=== PATIENT | female | born 1975 | race Caucasian/White ===

== ENCOUNTER 2023-04-07 05:46 | Day surgery (SDC) | payer BC, SELFPAY ==
[2023-04-07] VITALS (15 sets, daily range): BP systolic 119–137; BP diastolic 52–104; PULSE 69–91; RESP 4–25; TEMP 36.3–36.4; O2SAT 93–100
--- NOTE | 2023-04-07 05:55 | PC.NURSE ---
Pt states she has taken sam-seltzer, two tums, and flexeril with no relief.
[2023-04-07] MEDS: NITROGLYCERIN SL 0.4 MG TABLET SUBLINGUAL (06:23)
[2023-04-07] MEDS: GLUCAGON FOR INJ 1 MG VIAL IV PUSH (06:23)
--- NOTE | 2023-04-07 07:32 | ED.GENADULT ---
HPI - General Adult General Chief complaint: Unspecified Stated complaint: food stuck in chest Time Seen by Provider: 04/07/23 07:14 History of Present Illness HPI narrative: Pt ate a piece of steak last night and it got stuck in her chest. Pt asy she has not been able to swallow fluids or her own saliva since and has been up all night vomiting. Pt says this happened one other time but she was eventually able to vomit it up. Pt thomas snever been scoped. Related Data Allergies Allergy/AdvReac Type Severity Reaction Status Date / Time aspirin Allergy Vomiting Verified 04/07/23 09:04 Review of Systems Review of Systems: All systems reviewed & are unremarkable except as noted in HPI and below PMFSH Past Medical History Medical History (Updated 04/07/23 @ 18:57 by Jaspal Johnson III, DO) Food impaction of esophagus Exam Const: General: no acute distress Nutritional Appearance: average body habitus Orientation/consciousness: patient oriented x3 Limitations: no limitations HENMT: Mouth: Yes Normal oral and palatal mucosa present Chest: Chest palpation & inspection: normal inspection of the chest Breast/axilla inspection: normal inspection of the breasts Resp: Effort & Inspection: normal respiratory effort Auscultation: clear to auscultation bilaterally Cardio: Rate: regular rate Rhythm: regular rhythm GI: GI Palp: No abdominal tenderness Percussion: Yes normal to percussion Auscultation: normal bowel sounds Skin: General skin exam: normal color Course Vital Signs Vital signs: Vital Signs Temperature 97.5 F L 04/07/23 05:48 Pulse Rate 90 04/07/23 05:48 Respiratory Rate 16 04/07/23 05:48 Blood Pressure 137/96 H 04/07/23 05:48 Pulse Oximetry 100 04/07/23 05:48 Oxygen Delivery Room Air 04/07/23 05:48 Temperature 97.4 F L 04/07/23 08:55 Pulse Rate 71 04/07/23 10:00 Respiratory Rate 16 04/07/23 10:00 Blood Pressure 129/75 04/07/23 10:00 Pulse Oximetry 100 04/07/23 10:00 Oxygen Delivery Room Air 04/07/23 10:00 Medical Decision Making [facility] Narrative Medical decision making narrative: pt has food bolus stuck in esophagus, will check routine labs and try to reach GI for endoscopy. No GI traffic controller cable today. Dr Reyes contacted at [phone] and will take patient to GI lab for endoscopy. Pt informed. Vital Signs Vital Signs: Vital Signs Temperature 97.5 F L 04/07/23 05:48 Pulse Rate 90 04/07/23 05:48 Respiratory Rate 16 04/07/23 05:48 Blood Pressure 137/96 H 04/07/23 05:48 Pulse Oximetry 100 04/07/23 05:48 Oxygen Delivery Room Air 04/07/23 05:48 Temperature 97.4 F L 04/07/23 08:55 Pulse Rate 71 04/07/23 10:00 Respiratory Rate 16 04/07/23 10:00 Blood Pressure 129/75 04/07/23 10:00 Pulse Oximetry 100 04/07/23 10:00 Oxygen Delivery Room Air 04/07/23 10:00 Lab Data 04/07/23 08:06 04/07/23 08:06 Labs: Lab Results 04/07/23 Range/Units 08:06 WBC 19.7 H (4.5-10.0) K/mm3 RBC 4.09 L (4.2-5.4) M/mm3 Hgb 11.6 L (12.0-15.0) g/dL Hct 35.6 L (37.0-47.0) % MCV 87.0 (80-100) fl MCH 28.4 (26-34) pg MCHC 32.6 (32-36) g/dl RDW 13.7 (11.5-14.5) % Plt Count 264 (150-375) k/mm3 MPV 9.2 (7.4-10.4) fl Immature Gran % (Auto) 0.6 H (0-0.5) % Neut % (Auto) 82.0 H (45.5-73.1) % Lymph % (Auto) 9.0 L (18.3-44.2) % [place] % (Auto) 6.9 (2.6-8.5) % Eos % (Auto) 1.2 (0-4.4) % Baso % (Auto) 0.3 (0.2-1.2) % Lymph # (Auto) 1.77 (0.9-3.2) K/mm3 [place] # (Auto) 1.4 H (0.1-0.6) K/mm3 Eos # (Auto) 0.2 (0-0.3) K/mm3 Baso # (Auto) 0.1 (0.0-0.1) K/mm3 Abs Immat Gran (auto) 0.11 H (0.00-0.031) K/mm3 Absolute Neuts (auto) 16.1 H (1.3-6.7) K/mm3 Absolute Nucleated RBC 0.0 (0.0-0.012) K/mm3 Nucleated RBC % 0.0 (0.0-0.2) % Sodium 134 L (137-145) mmol/L Potassium 3.9 (3.4-5.0) mmol/L Chloride 104 (98-107) mmol/L Carbon Dioxide 25 (22-30)
[2023-04-07] MEDS: SODIUM CHLORIDE 0.9% IV 1,000 ML 999 ML IV CONT (08:00)
[2023-04-07] MEDS: ONDANSETRON INJ 4 MG/2 ML VIAL IV PUSH (08:01)
[2023-04-07 08:12] LABS: Basophils Absolute Auto 0.1 K/mm3 (0.0-0.1); Basophils Percent Auto 0.3 % (0.2-1.2); Eosinophils Absolute Auto 0.2 K/mm3 (0-0.3); Eosinophils Percent Auto 1.2 % (0-4.4); Hematocrit 35.6 % (37.0-47.0); Hemoglobin 11.6 g/dL (12.0-15.0); Immature Granulocyte Absolute 0.11 K/mm3 (0.00-0.031); Immature Granulocyte Percent A 0.6 % (0-0.5); Lymphocytes Absolute Auto 1.77 K/mm3 (0.9-3.2); Mean Corpuscular HGB Conc 32.6 g/dl (32-36); Mean Corpuscular Hemoglobin 28.4 pg (26-34); Mean Platelet Volume 9.2 fl (7.4-10.4); Monocytes Absolute Auto 1.4 K/mm3 (0.1-0.6); Monocytes Percent Auto 6.9 % (2.6-8.5); Neutrophils Absolute Auto 16.1 K/mm3 (1.3-6.7); Platelet Count Result 264 k/mm3 (150-375); Red Blood Count 4.09 M/mm3 (4.2-5.4); Red Cell Distribution Width 13.7 % (11.5-14.5); White Blood Count 19.7 K/mm3 (4.5-10.0)
[2023-04-07 08:21] LABS: Alanine Aminotransferase 18 U/L (6-35); Albumin Level 4.5 g/dL (3.5-5.1); Alkaline Phosphatase 62 U/L (38-126); Anion Gap 5 mmol/L (8-16); Aspartate Amino Transferase 27 U/L (14-36); Bilirubin,Total 0.4 mg/dL (0.2-1.3); Blood Urea Nitrogen 10 mg/dL (7-17); Calcium 9.1 mg/dL (8.4-10.2); Carbon Dioxide 25 mmol/L (22-30); Chloride 104 mmol/L (98-107); Estimated CRCL calculation 105 ml/min; Estimated Glomerular Filt Rate > 60; Glucose 106 mg/dL (65-110); Potassium 3.9 mmol/L (3.4-5.0); Sodium 134 mmol/L (137-145)
[2023-04-07] MEDS: LACTATED RINGERS 1,000 ML 150 ML IV CONT (09:07)
--- NOTE | 2023-04-07 09:30 | PM.HPGS ---
History of Present Illness History of Present Illness Consent: Risks, benefits, and alternatives have been discussed and questions answered. Patient agrees to proceed with procedure. Chief complaint: Food Bolus Narrative: Ora Bowens is a 47 year old female who had steak for dinner, since unable to even swallow own saliva. Something similar happened last year but did not have to come to ER and resolved after emesis. Never had egd and she is not taking any meds for GERD. Medical therapy in ER did not help and she is still uncomfortable. Review of Systems Constitutional: Constitutional: Denies headache(s) and Denies weakness Eyes: Eyes: Denies blurry vision ENT: Reports Normal hearing present, Denies headache(s) and Denies neck pain Cardiovascular: Cardiovascular: Denies chest pain and Denies dyspnea Respiratory: Respiratory: Denies dyspnea Gastrointestinal: Gastrointestinal: Reports no additional gastrointestinal complaints Genitourinary: Genitourinary: Denies dysuria Musculoskeletal: Musculoskeletal: Denies neck pain Integumentary/Breasts: Skin/Breast: Denies dry skin Neurologic: Reports Normal hearing present, Denies headache(s) and Denies weakness Psychiatric: Psychiatric: Denies anxiety Endocrine: Endocrine: Denies change in body appearance Hematologic/Lymphatic: Hematologic/Lymphatic: Denies easy bleeding Allergic/Immunologic: Allergic/Immunologic: Denies urticaria PMFSH Past Medical History Medical History (Updated 04/07/23 @ 09:35 by Roland Galvez MD) Food impaction of esophagus Meds Home Medications and Allergies Allergies Allergy/AdvReac Type Severity Reaction Status Date / Time aspirin Allergy Vomiting Verified 04/07/23 09:04 Vital Signs Vital Signs - 24 hr 04/07/23 05:48 04/07/23 05:55 04/07/23 06:02 Temperature 97.5 F L Pulse Rate 90 69 Respiratory Rate 16 Blood Pressure 137/96 H Pulse Oximetry 100 98 Oxygen Delivery Room Air Room Air 04/07/23 06:16 04/07/23 06:25 04/07/23 06:28 Temperature Pulse Rate 69 75 83 Respiratory Rate 14 12 12 Blood Pressure 119/76 124/86 124/81 Pulse Oximetry 99 100 100 Oxygen Delivery 04/07/23 06:29 04/07/23 06:31 04/07/23 06:39 Temperature Pulse Rate 91 88 69 Respiratory Rate 16 16 19 Blood Pressure 133/86 128/93 H 132/104 H Pulse Oximetry 100 100 93 Oxygen Delivery 04/07/23 06:46 04/07/23 07:00 04/07/23 07:01 Temperature Pulse Rate 79 75 69 Respiratory Rate 12 12 4 L Blood Pressure 136/88 126/91 H Pulse Oximetry 100 97 100 Oxygen Delivery 04/07/23 08:55 Temperature 97.4 F L Pulse Rate 72 Respiratory Rate 18 Blood Pressure 129/81 Pulse Oximetry 100 Oxygen Delivery Room Air Exam Const: General: healthy appearing and Physically active Other: still spitting up HENMT: Face/Nose/Sinus: Normal nares present Eyes: General: appearance normal, both eyes and all related structures Neck: Neck: no JVD Resp: Auscultation: clear to auscultation bilaterally Cardio: Rate: regular rate Rhythm: regular rhythm GI: Inspection: non-distended GI Palp: Yes Soft to palpation Skin: General skin exam: normal color Neuro: General: gait normal Speech: normal speech Extrem: General: normal to inspection Psych: Mental Status: mental status grossly normal Assessment and Plan Assessment and plan (1) Food impaction of esophagus: Code(s): T18.128A - Food in esophagus causing other injury, initial encounter Status: Acute Assessment and Plan: proceed with urgent EGD
--- NOTE | 2023-04-07 09:35 | WPDANESEPPF ---
Anes - Initial Pre Proc Eval Procedure: Operation Date: 04/07/23 13:45 Proposed Procedures p Esophagogastroduodenoscopy - Roland Galvez MD Date/Time: 04/07/23 09:35 Surgeon: Roland Galvez MD Pre Op Diagnosis: Food Bolus Patient Data Age: 47 Gender: F Height: 1.7 m Weight: 56.7 kg Last Vital Signs Temp 97.4 F L 04/07/23 08:55 Pulse 72 04/07/23 08:55 Resp 18 04/07/23 08:55 BP 129/81 04/07/23 08:55 Pulse Ox 100 04/07/23 08:55 O2 Del Method Room Air 04/07/23 08:55 Allergies Allergy/AdvReac Type Severity Reaction Status Date / Time aspirin Allergy Vomiting Verified 04/07/23 09:04 Laboratory Tests 04/07/23 08:06 WBC 19.7 H K/mm3 (4.5-10.0) RBC 4.09 L M/mm3 (4.2-5.4) Hgb 11.6 L g/dL (12.0-15.0) Hct 35.6 L % (37.0-47.0) MCV 87.0 fl (80-100) MCH 28.4 pg (26-34) MCHC 32.6 g/dl (32-36) RDW 13.7 % (11.5-14.5) Plt Count 264 k/mm3 (150-375) MPV 9.2 fl (7.4-10.4) Immature Gran % (Auto) 0.6 H % (0-0.5) Neut % (Auto) 82.0 H % (45.5-73.1) Lymph % (Auto) 9.0 L % (18.3-44.2) [place] % (Auto) 6.9 % (2.6-8.5) Eos % (Auto) 1.2 % (0-4.4) Baso % (Auto) 0.3 % (0.2-1.2) Lymph # (Auto) 1.77 K/mm3 (0.9-3.2) [place] # (Auto) 1.4 H K/mm3 (0.1-0.6) Eos # (Auto) 0.2 K/mm3 (0-0.3) Baso # (Auto) 0.1 K/mm3 (0.0-0.1) Abs Immat Gran (auto) 0.11 H K/mm3 (0.00-0.031) Absolute Neuts (auto) 16.1 H K/mm3 (1.3-6.7) Absolute Nucleated RBC 0.0 K/mm3 (0.0-0.012) Nucleated RBC % 0.0 % (0.0-0.2) Sodium 134 L mmol/L (137-145) Potassium 3.9 mmol/L (3.4-5.0) Chloride 104 mmol/L (98-107) Carbon Dioxide 25 mmol/L (22-30) Anion Gap 5 L mmol/L (8-16) BUN 10 mg/dL (7-17) Creatinine 0.50 L mg/dL (0.7-1.0) Estim Creat Clear Calc 105 ml/min Estimated GFR > 60 (59 - ) Glucose 106 mg/dL (65-110) Calcium 9.1 mg/dL (8.4-10.2) Total Bilirubin 0.4 mg/dL (0.2-1.3) AST 27 U/L (14-36) ALT 18 U/L (6-35) Alkaline Phosphatase 62 U/L (38-126) Total Protein 8.0 g/dL (6.3-8.2) Albumin 4.5 g/dL (3.5-5.1) Patient hx anesthesia problems: none Family hx anesthesia problems: none Results Review: All pre-operative results and documents have been reviewed as part of the pre-operative evaluation. [facility] Past Medical History Medical History (Updated 04/07/23 @ 09:35 by Roland Galvez MD) Food impaction of esophagus Anes - Eval Final PreProcedure Day of Procedure 04/07/23 09:35 Patient weight: normal Heart: regular rate and rhythm Lungs: clear to auscultation Airway: Mallampati scale Neurological: alert and oriented Last oral intake: >/= 8 hours ASA classification: II Emergent: yes Anesthetic plan: proceed Anesthesia type and monitoring: general GIVS and standard monitoring Results Review: All pre-operative results and documents have been reviewed as part of the pre-operative evaluation. Informed Consent: The patient's anesthetic plan and its attendant risks and benefits were discussed with the patient/family/POA. Questions were solicited and answers provided to the satisfaction of the patient/family/POA.
== END 2023-04-07 10:25 | disposition home or self-care (01) ==
LOC: ANHED 08:46 → ANHENDO 08:47
PROVIDERS: Emergency Provider Emergency Medicine; Visit Provider Internal Medicine Gastroenterology
PROC: 0DJ08ZZ Inspection of Upper Intestinal Tract, Via Natural or Artificial Opening Endoscopic (ICD-10-PCS; CPT 43235; principal; 2023-04-07 13:45)
DX: T18.128A Food in esophagus causing other injury, initial encounter (principal); K20.90 Esophagitis, unspecified without bleeding
CPT/HCPCS: 43239; 43247; 36415; 80053; 85025; 88305; 96361; 96374; 96375; 99285; A9270; J1610; J2405; J2704; J7030; J7120